=== PATIENT | female | born 1935 | race Caucasian/White ===

== ENCOUNTER → 2018-06-20 | Outpatient (CLI) | payer OTHER | LOC: M.RAD 11:38 | DX: R06.02 Shortness of breath (principal) ==

== ENCOUNTER → 2018-08-29 | Outpatient (CLI) | payer OTHER ==
--- NOTE | 2018-08-29 13:22 | 2DMMODE ---
[place] [address] 2 D/M-MODE ECHOCARDIOGRAM Name: KYUNGAN L Room: [facility]#: [id number] Admission: 08/29/18 Attend Phys: Cameron Betts MD Discharge: Date of : 31 Date of Service: 08/29/18 1322 Report #: [id number] THIS REPORT FOR: //name// APPROVED REPORT Study performed: 08/29/2018 10:17:02 EXAM: Comprehensive 2D, Doppler, and color-flow Echocardiogram Patient Location: Out-Patient BSA: 1.46 HR: 88 bpm BP: 150/92 mmHg Other Information Study Quality: Excellent Indications Dyspnea 2D Dimensions IVSd: 8.59 (7-11mm) LVOT Diam: 20.21 (18-24mm) LVDd: 39.30 mm PWd: 9.44 (7-11mm) Ascending Ao: 28.94 (22-36mm) LVDs: 25.31 (25-40mm) Aortic Root: 26.78 mm Volumes Left Atrial Volume (Systole) LA ESV Index: 20.40 mL/m2 Aortic Valve AoV Peak Gordy.: 0.73 m/s AO Peak Gr.: 2.12 mmHg LVOT Max P.81 mmHg AO Mean Gr.: 0.98 mmHg LVOT Mean P.83 mmHg LVOT Max V: 0.67 m/s AO V2 VTI: 14.70 cm LVOT Mean V: 0.42 m/s EVARISTO (VTI): 2.88 cm2 LVOT V1 VTI: 13.19 cm Mitral Valve E/A Ratio: 0.69 MV Decel. Time: 364.66 ms MV E Max Gordy.: 0.52 m/s MV PHT: 105.75 ms MVA (PHT): 2.08 [place]2 [place] [address] 2 D/M-MODE ECHOCARDIOGRAM Name: JEMIMAAN MURILLO Room: [facility]#: [id number] Admission: 08/29/18 Attend Phys: Cameron Betts MD Discharge: Date of : 31 Date of Service: 08/29/18 1322 Report #: [id number] TDI E/Lateral E': 4.73 E/Medial E': 6.50 Medial E' Gordy.: 0.08 m/s Lateral E' Gordy.: 0.11 m/s Pulmonary Valve PV Peak Gordy.: 0.89 m/s PV Peak Gr.: 3.18 mmHg Tricuspid Valve RAP Estimate: 5.00 mmHg TR Peak Gr.: 18.86 mmHg RVSP: 23.86 mmHg PA Pressure: 23.86 mmHg Left Ventricle The left ventricle is normal size. There is normal LV segmental wall motion. There is normal left ventricular wall thickness. Left ventricular systolic function is normal. The left ventricular ejection fraction is within the normal range. LVEF is 50-55%. Grade I - abnormal relaxation pattern. Right Ventricle The right ventricle is normal size. The right ventricular systolic function is normal. Atria The left atrium size is normal. The right atrium size is normal. Aortic Valve The Aortic valve is sclerotic. Trace aortic regurgitation. There is no aortic valvular stenosis. Mitral Valve The mitral valve is normal in structure. Mild mitral regurgitation. No evidence of mitral valve stenosis. Tricuspid Valve The tricuspid valve is normal in structure. Mild tricuspid regurgitation. Pulmonic Valve The pulmonary valve is normal in structure. Trace pulmonic regurgitation[place] [address] 2 D/M-MODE ECHOCARDIOGRAM Name: IVON TRACEYJORIE Mario Room: [facility]#: [id number] Admission: 08/29/18 Attend Phys: Cameron Betts MD Discharge: Date of : 31 Date of Service: 08/29/18 1322 Report #: [id number] The aortic root is normal in size. IVC is normal in size and collapses >50% with inspiration. Pericardium There is no pericardial effusion. <Conclusion> LVEF is 50-55%. The Aortic valve is sclerotic. Mild mitral regurgitation. <ELECTRONICALLY SIGNED> By: Cameron Betts MD, FACC 08/29/181321 21 21 Cameron Betts MD, FACC /INF
== END ==
LOC: M.CRD 10:00
DX: I08.1 Rheumatic disorders of both mitral and tricuspid valves (principal); R06.02 Shortness of breath

== ENCOUNTER → 2020-08-15 | Outpatient (CLI) | payer OTHER ==
[~2020-08-15] MED LIST: ASA81BEC PO; CALCIUM500 MG; FIBERCON625 M1; MELOXICAM15 MG PO; NORVASC5 MG PO; PAXIL20 MG PO; SIMVASTATIN80 MG PO; SUPER THERAVIT1 EACH; ULTRAM 50MG TAB50 MG PO; VITAMIN C100 MG
== END ==
LOC: M.PC 11:03
PROVIDERS: ATTEND Anesthesiology Pain Medicine
DX: M48.061 Spinal stenosis, lumbar region without neurogenic claudication (principal); I73.9 Peripheral vascular disease, unspecified; I70.209 Unspecified atherosclerosis of native arteries of extremities, unspecified extremity; E78.5 Hyperlipidemia, unspecified; M81.0 Age-related osteoporosis without current pathological fracture; I10 Essential (primary) hypertension; Z90.49 Acquired absence of other specified parts of digestive tract; Z79.899 Other long term (current) drug therapy

== ENCOUNTER → 2020-08-27 | Outpatient (CLI) | payer OTHER | END | disposition home or self-care (01) | LOC: M.PC 07:56 | PROVIDERS: ATTEND Anesthesiology Pain Medicine | DX: M54.16 Radiculopathy, lumbar region (principal); M48.061 Spinal stenosis, lumbar region without neurogenic claudication; G89.29 Other chronic pain; I10 Essential (primary) hypertension; I73.9 Peripheral vascular disease, unspecified; E78.5 Hyperlipidemia, unspecified; M81.0 Age-related osteoporosis without current pathological fracture; E78.00 Pure hypercholesterolemia, unspecified; H40.9 Unspecified glaucoma; F41.9 Anxiety disorder, unspecified; Z98.890 Other specified postprocedural states; Z79.899 Other long term (current) drug therapy; Z90.49 Acquired absence of other specified parts of digestive tract ==

== ENCOUNTER → 2021-07-07 | Outpatient (CLI) | payer OTHER | LOC: M.MRI 11:30 | PROVIDERS: ATTEND Psychiatry & Neurology Neuromuscular Medicine | DX: I67.82 Cerebral ischemia (principal); F03.90 Unspecified dementia, unspecified severity, without behavioral disturbance, psychotic disturbance, mood disturbance, and anxiety; R06.02 Shortness of breath ==